=== PATIENT | male | born 1990 | race Caucasian/White ===

== ENCOUNTER 2020-10-07 13:09 | Inpatient (IN) ==
[2020-10-07] MEDS ORDERED: THIAMINE 200 MG/2 ML VIAL IV STA (13:57)
[2020-10-07 14:13] LABS: Basophils % 0.1 % (0.0-0.8); Hematocrit 21.9 VOL% (42.0-52.0); Hemoglobin 8.1 GM/DL (14.0-18.0); Immature Granulocytes % 1.2 %; Immature Granulocytes Absolute 0.16 #; Lymphocytes # 0.9 10*3/uL (1.4-4.0); Lymphocytes % 6.5 % (21.2-54.2); Mean Platelet Volume 12.2 FL (9.6-12.0); Monocytes % 3.2 % (1.7-12.7); Platelet Count 43 T/CUMM (130-400); Red Blood Count 2.01 MC/CUMM (3.8-5.5); Red Cell Distribution Width 19.3 % (9.3-17.3); White Blood Count 13.1 T/CUMM (4-12)
[2020-10-07 14:28] LABS: PT Patient Result 20.8 SECS (10.5-12.0)
[2020-10-07 14:29] LABS: Partial Thromboplastin Time 52.4 SECS (23.9-33.8)
[2020-10-07] MEDS ORDERED: cefTRIAXone 1,000 MG in SODIUM CHLORIDE 0.9% 100 ML IV STA (14:32)
[2020-10-07 14:41] LABS: Acetaminophen < 2.0 UG/ML (10-30); Salicylate < 2.8 MG/DL (2.8-20)
[2020-10-07 14:47] LABS: Albumin 2.1 G/DL (3.4-5.0); Calcium 8.1 MG/DL (8.5-10.1); Osmolality,Calculated 242.1 MOS/KG (273-304); Total Protein 5.4 G/DL (6.4-8.2)
[2020-10-07 15:08] LABS: Barbiturates Screen,Urine Negative (Negative); Benzodiazepines Screen,Urine Negative (Negative); Cannabinoid Screen,Urine Positive (Negative); Opiate Screen,Urine Negative (Negative); Phencyclidine Screen,Urine Negative (Negative)
[2020-10-07 15:11] LABS: Bacteria,Urine Few /HPF (Few); Blood, Urine Moderate mg/dL (Negative); Glucose,Urine (UA) Negative (Negative); Ketones,Urine Negative (Negative); Mucus,Urine Occasional /LPF (Occasional); Nitrite,Urine Negative (Negative); Protein,Urine Negative; RBC,Urine 1 /HPF (0-4); Squamous Epithelial Cell,Urine Occasional /HPF (0-10); Urine Appearance Slightly Hazy (Clear); Urine Color Amber (Yellow); Urine Specific Gravity 1.013 (1.001-1.035)
[2020-10-07 15:12] LABS: Bilirubin,Urine Moderate mg/dL (Negative)
[2020-10-07] MEDS ORDERED: ALBUTEROL 2.5 MG/3 ML NEB RESP TX PRN (15:38)
[2020-10-07] MEDS ORDERED: ONDANSETRON 4 MG/2 ML VIAL IV PRN (15:38)
[2020-10-07] MEDS ORDERED: LACTULOSE 20 GM/30 ML UDCUP PO PRN ×2 (15:38→17:53)
[2020-10-07 16:07] LABS: Hypochromasia 2+; Platelet Estimate Decreased
[2020-10-07 16:08] LABS: Acanthocytes Few; Microcytosis 1+
[2020-10-07] MEDS ORDERED: SODIUM CHLORIDE 3% INJ 500 ML IV STA (16:22)
[2020-10-07] MEDS ORDERED: ALBUTEROL/IPRATROPIUM 3 ML NEB RESP TX PRN (17:03)
[2020-10-07] MEDS ORDERED: DIAZEPAM 10 MG/2 ML SYRINGE IV PRN (17:03)
[2020-10-07] MEDS ORDERED: FUROSEMIDE 40 MG/4 ML VIAL IV ONE (17:30)
[2020-10-07] MEDS ORDERED: SODIUM CHLORIDE 3% INJ 100 ML IV STA (17:33)
[2020-10-07] MEDS: FAMOTIDINE 20 MG/2 ML VIAL IV SCH (17:50)
[2020-10-07] MEDS ORDERED: SODIUM CHLORIDE 0.9% 1,000 ML IV PRN (18:11)
[2020-10-07] MEDS ORDERED: ACETYLCYSTEINE INJ 15,000 MG in DEXTROSE 5% 100 ML IV ONE (18:30)
[2020-10-07] MEDS ORDERED: ACETYLCYSTEINE INJ 5,000 MG in DEXTROSE 5% 250 ML IV ONE (20:00)
[2020-10-07] MEDS ORDERED: LORazepam 2 MG/1 ML VIAL ONE (21:40)
[2020-10-07] MEDS: LORazepam 2 MG/1 ML VIAL IV PRN ×2 (21:44→22:42)
[2020-10-08] MEDS ORDERED: ACETYLCYSTEINE INJ 10,000 MG in DEXTROSE 5% 1,000 ML IV ONE
[2020-10-08] MEDS: LORazepam 2 MG/1 ML VIAL IV PRN (00:13)
[2020-10-08 01:13] LABS: ABG Base Excess 4.4 MMOL/L (-2.5-2.5); ABG HCO3 28.3 MMOL/L (20-26); ABG Oxygen Saturation 93.1 % (95-100); ABG PCO2 38.2 MM HG (35-48); ABG PH 7.475 (7.35-7.45); ABG PO2 67.3 MM HG (80-95); ABG TCO2 26.3 MMOL/L (23-27); Allen Test Positive
[2020-10-08] MEDS ORDERED: ETOMIDATE 20 MG/10 ML VIAL IV ONE ×2 (01:49→02:19)
[2020-10-08] MEDS ORDERED: ROCURONIUM 100 MG/10 ML VIAL IV ONE ×3 (01:49→02:21)
[2020-10-08] MEDS ORDERED: PHENYLEPHRINE DRIP 0 MG/0 ML PREMIX IV ONE (02:08)
[2020-10-08] MEDS: LORazepam INJ 40 MG in DEXTROSE 5% 30 ML IV PRN ×2 (02:28→16:48)
[2020-10-08 03:23] LABS: Basophils % 0.1 % (0.0-0.8); Hematocrit 21.9 VOL% (42.0-52.0); Hemoglobin 7.9 GM/DL (14.0-18.0); Immature Granulocytes % 1.6 %; Immature Granulocytes Absolute 0.13 #; Lymphocytes # 0.6 10*3/uL (1.4-4.0); Lymphocytes % 6.8 % (21.2-54.2); Mean Corpuscular HGB Conc 36.1 GM/DL (32-36); Mean Corpuscular Volume 104.8 FL (87-102); Mean Platelet Volume 11.8 FL (9.6-12.0); Monocytes % 3.1 % (1.7-12.7); Neutrophils % 88.4 % (38.7-73.9); Red Blood Count 2.09 MC/CUMM (3.8-5.5); White Blood Count 8.1 T/CUMM (4-12)
[2020-10-08 03:26] LABS: Platelet Count 35 T/CUMM (130-400)
[2020-10-08 03:35] LABS: INR 2.1
[2020-10-08 03:36] LABS: PT Patient Result 21.9 SECS (10.5-12.0)
[2020-10-08 03:46] LABS: Amorphous Crystals,Urine Occasional /HPF (Few); Bacteria,Urine Occasional /HPF (Few); Blood, Urine Small mg/dL (Negative); Glucose,Urine (UA) Negative (Negative); Ketones,Urine Negative (Negative); Mucus,Urine Occasional /LPF (Occasional); Nitrite,Urine Negative (Negative); Protein,Urine Negative; RBC,Urine 2 /HPF (0-4); Squamous Epithelial Cell,Urine Occasional /HPF (0-10); Urine Appearance Slightly Hazy (Clear); Urine Color Amber (Yellow)
[2020-10-08 03:48] LABS: Lymphocytes 7 % (20-55); Platelet Estimate Decreased; Segmented Neutrophils 91 % (50-85)
[2020-10-08 03:49] LABS: Hypochromasia 1+; Macrocytosis 1+
[2020-10-08 03:50] LABS: Total Cells Counted 100
[2020-10-08 03:51] LABS: ABG Base Excess 4.6 MMOL/L (-2.5-2.5); ABG HCO3 28.6 MMOL/L (20-26); ABG PCO2 49.9 MM HG (35-48); ABG PH 7.391 (7.35-7.45); ABG TCO2 28.3 MMOL/L (23-27); Allen Test Positive; Pt O2 Delivery Device Ventilator
[2020-10-08 03:54] LABS: Alanine Aminotransferase 47 U/L (16-61); Albumin 1.8 G/DL (3.4-5.0); Alkaline Phosphatase 105 U/L (45-117); Aspartate Amino Transferase 309 U/L (0-37); Blood Urea Nitrogen 19 MG/DL (7-18); Calcium 7.8 MG/DL (8.5-10.1); Carbon Dioxide 31 MMOL/L (21-32); Estimated Glom Filtration Rate 111 ML/MIN; Glucose 69 MG/DL (74-106); HDL Cholesterol 10 MG/DL (40-60); Osmolality,Calculated 252.4 MOS/KG (273-304); Potassium 2.9 MMOL/L (3.5-5.1); Sodium 126 MMOL/L (136-145); Total Protein 4.5 G/DL (6.4-8.2); Triglycerides 148 MG/DL (2-150); VLDL CHOLESTEROL 29.6 MG/DL
[2020-10-08 03:55] LABS: Bilirubin,Urine Moderate mg/dL (Negative)
[2020-10-08] MEDS: chlordiazePOXIDE 25 MG CAPSULE PO SCH ×3 (05:05→20:45)
[2020-10-08] MEDS: FAMOTIDINE 20 MG/2 ML VIAL IV SCH ×2 (05:05→16:20)
[2020-10-08] MEDS ORDERED: MAGNESIUM SULF RIDER 2 GM/50 ML PREMIX IV PRN (06:22)
[2020-10-08] MEDS ORDERED: MAGNESIUM SULF RIDER 4 GM/100 ML PREMIX IV PRN (06:22)
[2020-10-08] MEDS ORDERED: POTASSIUM CHLORIDE RIDER 100 ML IV ONE (06:23)
[2020-10-08] MEDS ORDERED: POTASSIUM CHLORIDE RIDER 10 MEQ in PREMIX 1 EACH IV PRN (06:24)
[2020-10-08] MEDS: POTASSIUM CHLORIDE RIDER 20 MEQ in PREMIX 1 EACH IV PRN ×2 (06:26→09:05)
[2020-10-08] MEDS ORDERED: POTASSIUM CHLORIDE 20 MEQ/15 ML UDCUP PER TUBE PRN (08:09)
[2020-10-08] MEDS ORDERED: SODIUM CHLORIDE 0.9% 1,000 ML IV PRN ×2 (08:10→09:23)
[2020-10-08] MEDS ORDERED: FUROSEMIDE 40 MG/4 ML VIAL IV ONE (08:12)
[2020-10-08] MEDS: prednisoLONE 15 MG/5 ML ORAL.SYR NG SCH (08:53)
[2020-10-08] MEDS ORDERED: THIAMINE INJ 100 MG, FOLIC ACID INJ 1 MG, MULTIVITAMIN INJ 10 ML in SODIUM CHLORIDE 0.9... IV ONE (09:00)
[2020-10-08] MEDS: LACTULOSE 20 GM/30 ML UDCUP PO SCH ×2 (10:12→16:59)
[2020-10-08] MEDS: SODIUM CHLORIDE 0.9% 1,000 ML IV SCH ×2 (14:12→20:20)
[2020-10-08] MEDS: NOREPINEPHRINE 16 MG in SODIUM CHLORIDE 0.9% 234 ML IV PRN (15:00)
[2020-10-08] MEDS: NYSTATIN 500,000 UNIT/5 ML UDCUP SWISH/SWAL SCH ×2 (16:20→20:45)
[2020-10-08 18:27] LABS: Basophils % 0.1 % (0.0-0.8); Hematocrit 22.3 VOL% (42.0-52.0); Hemoglobin 8.1 GM/DL (14.0-18.0); Lymphocytes # 0.7 10*3/uL (1.4-4.0); Lymphocytes % 7.5 % (21.2-54.2); Mean Corpuscular HGB Conc 36.3 GM/DL (32-36); Mean Corpuscular Volume 100.9 FL (87-102); Mean Platelet Volume 11.2 FL (9.6-12.0); Neutrophils % 89.4 % (38.7-73.9); Platelet Count 49 T/CUMM (130-400); Red Blood Count 2.21 MC/CUMM (3.8-5.5); Red Cell Distribution Width 22.5 % (9.3-17.3); White Blood Count 9.5 T/CUMM (4-12)
[2020-10-08 20:26] LABS: Lymphocytes 13 % (20-55); Segmented Neutrophils 87 % (50-85); Total Cells Counted 100
[2020-10-08 20:27] LABS: Platelet Estimate Decreased; Polychromasia 1+; Reactive Lymphocytes Few; Target Cells 2+
[2020-10-08 20:28] LABS: Anisocytosis 2+; Dohle Bodies 1+; Macrocytosis 2+; Microcytosis 1+; Toxic Granulation 1+
[2020-10-08] MEDS: NICOTINE 14 MG/24 HR PATCH TRANSDERM SCH (20:45)
[2020-10-09 03:01] LABS: ABG Base Excess 5.5 MMOL/L (-2.5-2.5); ABG HCO3 30.2 MMOL/L (20-26); ABG Oxygen Saturation 99.1 % (95-100); ABG PCO2 45.1 MM HG (35-48); ABG PH 7.443 (7.35-7.45); ABG PO2 154.9 MM HG (80-95); ABG TCO2 31.5 MMOL/L (23-27)
[2020-10-09] MEDS: chlordiazePOXIDE 25 MG CAPSULE PO SCH ×3 (03:40→21:23)
[2020-10-09] MEDS: LACTULOSE 20 GM/30 ML UDCUP PO SCH ×3 (03:40→17:05)
[2020-10-09] MEDS: FAMOTIDINE 20 MG/2 ML VIAL IV SCH ×2 (03:40→17:05)
[2020-10-09 03:53] LABS: Basophils % 0.1 % (0.0-0.8); Hematocrit 22.2 VOL% (42.0-52.0); Hemoglobin 8.1 GM/DL (14.0-18.0); Immature Granulocytes % 1.3 %; Immature Granulocytes Absolute 0.13 #; Lymphocytes # 0.8 10*3/uL (1.4-4.0); Lymphocytes % 8.4 % (21.2-54.2); Mean Corpuscular HGB Conc 36.5 GM/DL (32-36); Mean Corpuscular Volume 98.2 FL (87-102); Mean Platelet Volume 10.8 FL (9.6-12.0); Monocytes % 4.1 % (1.7-12.7); NRBC # 0.02 10*3/uL; Neutrophils % 86.1 % (38.7-73.9); Red Cell Distribution Width 22.5 % (9.3-17.3); White Blood Count 9.8 T/CUMM (4-12)
[2020-10-09 04:00] LABS: Platelet Count 41 T/CUMM (130-400); Red Blood Count 2.26 MC/CUMM (3.8-5.5)
[2020-10-09 04:14] LABS: Anisocytosis 1+; Hypochromasia 2+; Microcytosis 1+; Platelet Estimate Decreased; Target Cells 1+
[2020-10-09 04:23] LABS: Calcium 8.6 MG/DL (8.5-10.1); Osmolality,Calculated 265.2 MOS/KG (273-304); Potassium 3.1 MMOL/L (3.5-5.1)
[2020-10-09 04:25] LABS: Bilirubin,Total 27.7 MG/DL (0.2-1.0)
[2020-10-09] MEDS: SODIUM CHLORIDE 0.9% 1,000 ML IV SCH ×3 (04:26→17:01)
[2020-10-09] MEDS: POTASSIUM CHLORIDE RIDER 20 MEQ in PREMIX 1 EACH IV PRN ×5 (05:05→22:03)
[2020-10-09] MEDS ORDERED: ALBUMIN 25% 50 GM/200 ML VIAL IV ONE (07:35)
[2020-10-09] MEDS: NYSTATIN 500,000 UNIT/5 ML UDCUP SWISH/SWAL SCH ×4 (09:06→21:22)
[2020-10-09] MEDS: NICOTINE 14 MG/24 HR PATCH TRANSDERM SCH (09:06)
[2020-10-09] MEDS: prednisoLONE 15 MG/5 ML ORAL.SYR NG SCH (09:09)
[2020-10-10] MEDS: SODIUM CHLORIDE 0.9% 1,000 ML IV SCH ×4 (00:20→18:01)
[2020-10-10] MEDS: LACTULOSE 20 GM/30 ML UDCUP PO SCH (03:06)
[2020-10-10] MEDS: FAMOTIDINE 20 MG/2 ML VIAL IV SCH ×2 (03:07→16:50)
[2020-10-10] MEDS: chlordiazePOXIDE 25 MG CAPSULE PO SCH ×3 (03:12→20:45)
[2020-10-10 03:40] LABS: ABG Base Excess 0.8 MMOL/L (-2.5-2.5); ABG HCO3 25.1 MMOL/L (20-26); ABG Oxygen Saturation 97.8 % (95-100); ABG PCO2 41.9 MM HG (35-48); ABG PH 7.395 (7.35-7.45); ABG PO2 97.5 MM HG (80-95); ABG TCO2 24.1 MMOL/L (23-27)
[2020-10-10 04:30] LABS: Basophils % 0.2 % (0.0-0.8); Eosinophils % 0.2 % (0.00-10.9); Hematocrit 21.3 VOL% (42.0-52.0); Hemoglobin 7.6 GM/DL (14.0-18.0); Immature Granulocytes % 2.7 %; Lymphocytes # 0.9 10*3/uL (1.4-4.0); Lymphocytes % 8.4 % (21.2-54.2); Mean Corpuscular HGB Conc 35.7 GM/DL (32-36); Mean Corpuscular Volume 102.9 FL (87-102); Monocytes % 8.7 % (1.7-12.7); NRBC # 0.02 10*3/uL; Neutrophils % 79.8 % (38.7-73.9); Platelet Count 50 T/CUMM (130-400); Red Blood Count 2.07 MC/CUMM (3.8-5.5); Red Cell Distribution Width 22.5 % (9.3-17.3); White Blood Count 11.2 T/CUMM (4-12)
[2020-10-10 04:56] LABS: Albumin 2.5 G/DL (3.4-5.0); Calcium 8.8 MG/DL (8.5-10.1); Osmolality,Calculated 272.2 MOS/KG (273-304); Potassium 3.7 MMOL/L (3.5-5.1); Total Protein 5.1 G/DL (6.4-8.2)
[2020-10-10 04:59] LABS: Bilirubin,Total 31.1 MG/DL (0.2-1.0)
[2020-10-10] MEDS: POTASSIUM CHLORIDE RIDER 20 MEQ in PREMIX 1 EACH IV PRN (06:09)
[2020-10-10] MEDS: LORazepam INJ 40 MG in DEXTROSE 5% 30 ML IV PRN (06:12)
[2020-10-10] MEDS ORDERED: ALBUMIN 25% 50 GM/200 ML VIAL IV ONE (06:50)
[2020-10-10] MEDS ORDERED: LACTULOSE 320 GM/480 ML BOTTLE RECTAL PRN (06:56)
[2020-10-10] MEDS: NYSTATIN 500,000 UNIT/5 ML UDCUP SWISH/SWAL SCH ×4 (09:36→20:45)
[2020-10-10] MEDS: NICOTINE 14 MG/24 HR PATCH TRANSDERM SCH (09:36)
[2020-10-10] MEDS: prednisoLONE 15 MG/5 ML ORAL.SYR NG SCH (09:37)
[2020-10-10] MEDS: NOREPINEPHRINE 16 MG in SODIUM CHLORIDE 0.9% 234 ML IV PRN (16:49)
[2020-10-11 00:49] LABS: Basophils % 0.1 % (0.0-0.8); Eosinophils % 0.1 % (0.00-10.9); Hematocrit 26.9 VOL% (42.0-52.0); Immature Granulocytes % 6.1 %; Lymphocytes # 1.4 10*3/uL (1.4-4.0); Lymphocytes % 8.6 % (21.2-54.2); Mean Corpuscular HGB Conc 35.3 GM/DL (32-36); Mean Corpuscular Volume 100.4 FL (87-102); Neutrophils % 78.1 % (38.7-73.9); Red Cell Distribution Width 22.2 % (9.3-17.3)
[2020-10-11 00:52] LABS: Platelet Count 64 T/CUMM (130-400); White Blood Count 16.3 T/CUMM (4-12)
[2020-10-11 00:54] LABS: Hemoglobin 9.5 GM/DL (14.0-18.0); Red Blood Count 2.68 MC/CUMM (3.8-5.5)
[2020-10-11] MEDS: SODIUM CHLORIDE 0.9% 1,000 ML IV SCH ×3 (02:09→15:31)
[2020-10-11 02:20] LABS: Band Neutrophils 2 % (0-10); Lymphocytes 5 % (20-55); Segmented Neutrophils 86 % (50-85); Total Cells Counted 100
[2020-10-11 02:21] LABS: Hypochromasia 1+; Platelet Estimate Decreased
[2020-10-11 04:18] LABS: ABG Base Excess -3.1 MMOL/L (-2.5-2.5); ABG HCO3 21.8 MMOL/L (20-26); ABG Oxygen Saturation 97.4 % (95-100); ABG PCO2 40.6 MM HG (35-48); ABG PH 7.348 (7.35-7.45); ABG TCO2 20.3 MMOL/L (23-27); Allen Test Positive; Pt O2 Delivery Device Ventilator
[2020-10-11] MEDS: FAMOTIDINE 20 MG/2 ML VIAL IV SCH ×2 (04:40→15:30)
[2020-10-11] MEDS: chlordiazePOXIDE 25 MG CAPSULE PO SCH ×3 (04:40→20:39)
[2020-10-11] MEDS: LORazepam INJ 40 MG in DEXTROSE 5% 30 ML IV PRN ×3 (04:50→23:10)
[2020-10-11 04:52] LABS: Basophils % 0.1 % (0.0-0.8); Eosinophils % 0.1 % (0.00-10.9); Hematocrit 27.5 VOL% (42.0-52.0); Hemoglobin 9.8 GM/DL (14.0-18.0); Immature Granulocytes % 5.4 %; Immature Granulocytes Absolute 1.03 #; Lymphocytes # 1.6 10*3/uL (1.4-4.0); Lymphocytes % 8.6 % (21.2-54.2); Mean Corpuscular HGB Conc 35.6 GM/DL (32-36); Mean Corpuscular Volume 100.4 FL (87-102); Monocytes % 8.9 % (1.7-12.7); Neutrophils % 76.9 % (38.7-73.9); Red Blood Count 2.74 MC/CUMM (3.8-5.5); White Blood Count 19.1 T/CUMM (4-12)
[2020-10-11 04:53] LABS: Platelet Count 73 T/CUMM (130-400)
[2020-10-11 05:16] LABS: Hypochromasia 1+; Lymphocytes 8 % (20-55); Microcytosis 1+; Platelet Estimate Decreased; Segmented Neutrophils 86 % (50-85); Total Cells Counted 100
[2020-10-11 06:27] LABS: Albumin 2.5 G/DL (3.4-5.0); Osmolality,Calculated 291.7 MOS/KG (273-304); Potassium 4.1 MMOL/L (3.5-5.1); Total Protein 5.8 G/DL (6.4-8.2)
[2020-10-11 06:28] LABS: Bilirubin,Total 29.2 MG/DL (0.2-1.0)
[2020-10-11] MEDS: NYSTATIN 500,000 UNIT/5 ML UDCUP SWISH/SWAL SCH ×4 (08:37→20:48)
[2020-10-11] MEDS: prednisoLONE 15 MG/5 ML ORAL.SYR NG SCH (08:37)
[2020-10-11] MEDS: NICOTINE 14 MG/24 HR PATCH TRANSDERM SCH (08:37)
[2020-10-11] MEDS ORDERED: GLUCAGON 1 MG VIAL IM PRN (09:56)
[2020-10-11] MEDS: INSULIN REGULAR 100 UNIT/ML SUBCUT SCH ×3 (11:33→23:45)
[2020-10-11 11:45] LABS: INR 1.5; PT Patient Result 16.1 SECS (10.5-12.0)
[2020-10-11] MEDS: NOREPINEPHRINE 16 MG in SODIUM CHLORIDE 0.9% 234 ML IV PRN (18:54)
[2020-10-12 04:30] LABS: Basophils % 0.2 % (0.0-0.8); Hematocrit 26.8 VOL% (42.0-52.0); Hemoglobin 9.5 GM/DL (14.0-18.0); Immature Granulocytes % 7.4 %; Immature Granulocytes Absolute 1.57 #; Lymphocytes # 1.1 10*3/uL (1.4-4.0); Lymphocytes % 5.2 % (21.2-54.2); Mean Corpuscular HGB Conc 35.4 GM/DL (32-36); Mean Corpuscular Volume 101.1 FL (87-102); Mean Platelet Volume 11.7 FL (9.6-12.0); Monocytes % 10.8 % (1.7-12.7); NRBC # 0.03 10*3/uL; Neutrophils % 76.4 % (38.7-73.9); Platelet Count 109 T/CUMM (130-400); Red Blood Count 2.65 MC/CUMM (3.8-5.5); Red Cell Distribution Width 22.3 % (9.3-17.3); White Blood Count 21.3 T/CUMM (4-12)
[2020-10-12] MEDS: chlordiazePOXIDE 25 MG CAPSULE PO SCH (04:32)
[2020-10-12] MEDS: FAMOTIDINE 20 MG/2 ML VIAL IV SCH ×2 (04:32→16:12)
[2020-10-12 04:38] LABS: INR 1.4; PT Patient Result 15.4 SECS (10.5-12.0)
[2020-10-12 04:50] LABS: Albumin 2.4 G/DL (3.4-5.0); Calcium 8.5 MG/DL (8.5-10.1); Osmolality,Calculated 295.8 MOS/KG (273-304); Potassium 4.3 MMOL/L (3.5-5.1); Total Protein 5.6 G/DL (6.4-8.2)
[2020-10-12] MEDS: SODIUM CHLORIDE 0.9% 1,000 ML IV SCH (04:51)
[2020-10-12 04:54] LABS: Bilirubin,Total 27.7 MG/DL (0.2-1.0)
[2020-10-12 05:00] LABS: Band Neutrophils 1 % (0-10); Hypochromasia 1+; Lymphocytes 7 % (20-55); Microcytosis 1+; Platelet Estimate Decreased; Segmented Neutrophils 82 % (50-85); Total Cells Counted 100
[2020-10-12 05:10] LABS: Allen Test Positive; Pt O2 Delivery Device Ventilator
[2020-10-12 05:12] LABS: ABG Base Excess -5.7 MMOL/L (-2.5-2.5); ABG HCO3 19.8 MMOL/L (20-26); ABG Oxygen Saturation 95.2 % (95-100); ABG PCO2 38.8 MM HG (35-48); ABG PH 7.325 (7.35-7.45); ABG PO2 88.8 MM HG (80-95)
[2020-10-12] MEDS: INSULIN REGULAR 100 UNIT/ML SUBCUT SCH ×3 (05:42→17:49)
[2020-10-12] MEDS: LORazepam INJ 40 MG in DEXTROSE 5% 30 ML IV PRN (08:10)
[2020-10-12] MEDS: NYSTATIN 500,000 UNIT/5 ML UDCUP SWISH/SWAL SCH ×4 (08:33→21:15)
[2020-10-12] MEDS: NICOTINE 14 MG/24 HR PATCH TRANSDERM SCH (08:34)
[2020-10-12] MEDS: prednisoLONE 15 MG/5 ML ORAL.SYR NG SCH (08:34)
[2020-10-12] MEDS ORDERED: PROMETHAZINE INJ 12.5 MG in SODIUM CHLORIDE 0.9% 50 ML IV PRN (13:56)
[2020-10-12] MEDS ORDERED: chlordiazePOXIDE 25 MG CAPSULE PO SCH (15:00)
[2020-10-12] MEDS: IBUPROFEN 400 MG TABLET PO PRN (16:20)
[2020-10-12] MEDS: MEROPENEM 500 MG in SODIUM CHLORIDE 0.9% 100 ML IV SCH (18:28)
[2020-10-12] MEDS: NOREPINEPHRINE 16 MG in SODIUM CHLORIDE 0.9% 234 ML IV PRN (22:17)
[2020-10-13] MEDS: INSULIN REGULAR 100 UNIT/ML SUBCUT SCH ×4 (00:44→17:21)
[2020-10-13 03:56] LABS: Basophils # 0.1 10*3/uL (0.0-0.2); Basophils % 0.2 % (0.0-0.8); Eosinophils % 0.1 % (0.00-10.9); Hematocrit 24.8 VOL% (42.0-52.0); Hemoglobin 9.1 GM/DL (14.0-18.0); Immature Granulocytes % 7.7 %; Immature Granulocytes Absolute 1.74 #; Lymphocytes # 1.2 10*3/uL (1.4-4.0); Lymphocytes % 5.4 % (21.2-54.2); Mean Corpuscular HGB Conc 36.7 GM/DL (32-36); Mean Corpuscular Volume 99.6 FL (87-102); Mean Platelet Volume 11.5 FL (9.6-12.0); Monocytes % 8.4 % (1.7-12.7); NRBC # 0.03 10*3/uL; Neutrophils % 78.2 % (38.7-73.9); Platelet Count 100 T/CUMM (130-400); Red Blood Count 2.49 MC/CUMM (3.8-5.5); Red Cell Distribution Width 22.7 % (9.3-17.3); White Blood Count 22.6 T/CUMM (4-12)
[2020-10-13 03:58] LABS: ABG Base Excess -8.2 MMOL/L (-2.5-2.5); ABG HCO3 17.8 MMOL/L (20-26); ABG Oxygen Saturation 98.2 % (95-100); ABG PCO2 38.5 MM HG (35-48); ABG PH 7.279 (7.35-7.45); ABG TCO2 16.8 MMOL/L (23-27); Allen Test Positive; Pt O2 Delivery Device Ventilator
[2020-10-13 04:20] LABS: Band Neutrophils 1 % (0-10); Lymphocytes 6 % (20-55); Segmented Neutrophils 84 % (50-85); Total Cells Counted 100
[2020-10-13 04:21] LABS: Hypochromasia 1+; Microcytosis 1+
[2020-10-13 04:22] LABS: Platelet Estimate Adequate
[2020-10-13 04:24] LABS: INR 1.5; PT Patient Result 15.8 SECS (10.5-12.0)
[2020-10-13 04:25] LABS: Albumin 2.3 G/DL (3.4-5.0); Calcium 8.3 MG/DL (8.5-10.1); Osmolality,Calculated 303.9 MOS/KG (273-304); Potassium 4.8 MMOL/L (3.5-5.1); Total Protein 5.5 G/DL (6.4-8.2)
[2020-10-13 04:27] LABS: Bilirubin,Total 26.5 MG/DL (0.2-1.0)
[2020-10-13] MEDS: FAMOTIDINE 20 MG/2 ML VIAL IV SCH ×2 (05:15→17:17)
[2020-10-13] MEDS: MEROPENEM 500 MG in SODIUM CHLORIDE 0.9% 100 ML IV SCH ×2 (05:19→17:22)
[2020-10-13] MEDS: prednisoLONE 15 MG/5 ML ORAL.SYR NG SCH (08:44)
[2020-10-13] MEDS: NYSTATIN 500,000 UNIT/5 ML UDCUP SWISH/SWAL SCH ×4 (08:45→20:10)
[2020-10-13] MEDS: NICOTINE 14 MG/24 HR PATCH TRANSDERM SCH (08:45)
[2020-10-13] MEDS: LACTULOSE 320 GM/480 ML BOTTLE RECTAL SCH ×3 (08:46→20:40)
[2020-10-13] MEDS ORDERED: ALBUMIN 25% 25 GM/100 ML VIAL IV ONE (16:24)
[2020-10-14] MEDS: INSULIN REGULAR 100 UNIT/ML SUBCUT SCH ×4 (00:14→18:21)
[2020-10-14] MEDS: LACTULOSE 320 GM/480 ML BOTTLE RECTAL SCH ×4 (02:20→21:03)
[2020-10-14 03:42] LABS: Basophils # 0.1 10*3/uL (0.0-0.2); Basophils % 0.3 % (0.0-0.8); Hematocrit 24.8 VOL% (42.0-52.0); Immature Granulocytes % 8.3 %; Immature Granulocytes Absolute 2.59 #; Lymphocytes # 0.9 10*3/uL (1.4-4.0); Lymphocytes % 2.8 % (21.2-54.2); Mean Corpuscular HGB Conc 36.3 GM/DL (32-36); Mean Corpuscular Volume 99.6 FL (87-102); Monocytes % 6.8 % (1.7-12.7); NRBC # 0.08 10*3/uL; Neutrophils % 81.8 % (38.7-73.9); Platelet Count 133 T/CUMM (130-400); Red Blood Count 2.49 MC/CUMM (3.8-5.5); Red Cell Distribution Width 22.9 % (9.3-17.3); White Blood Count 31.2 T/CUMM (4-12)
[2020-10-14 03:51] LABS: INR 1.5; PT Patient Result 15.9 SECS (10.5-12.0)
[2020-10-14 04:12] LABS: Albumin 2.5 G/DL (3.4-5.0); Osmolality,Calculated 303.7 MOS/KG (273-304); Total Protein 5.9 G/DL (6.4-8.2)
[2020-10-14] MEDS: FAMOTIDINE 20 MG/2 ML VIAL IV SCH (04:19)
[2020-10-14 04:25] LABS: ABG Base Excess -7.9 MMOL/L (-2.5-2.5); ABG Oxygen Saturation 95.5 % (95-100); ABG PCO2 45.5 MM HG (35-48); ABG PO2 92.5 MM HG (80-95); ABG TCO2 17.8 MMOL/L (23-27); Allen Test Positive; Pt O2 Delivery Device Ventilator
[2020-10-14 04:28] LABS: Bilirubin,Total 28.6 MG/DL (0.2-1.0)
[2020-10-14 04:38] LABS: Band Neutrophils 1 % (0-10); Lymphocytes 2 % (20-55); Metamyelocytes 1 %; Nucleated Red Blood Cells 1 (0-5); Segmented Neutrophils 94 % (50-85); Total Cells Counted 100
[2020-10-14 04:39] LABS: Anisocytosis 1+; Hypochromasia 1+; Microcytosis 1+; Target Cells Few
[2020-10-14] MEDS: MEROPENEM 500 MG in SODIUM CHLORIDE 0.9% 100 ML IV SCH (05:15)
[2020-10-14] MEDS: NOREPINEPHRINE 16 MG in SODIUM CHLORIDE 0.9% 234 ML IV PRN ×2 (07:00→23:48)
[2020-10-14] MEDS: NICOTINE 14 MG/24 HR PATCH TRANSDERM SCH (08:57)
[2020-10-14] MEDS: NYSTATIN 500,000 UNIT/5 ML UDCUP SWISH/SWAL SCH ×4 (08:57→20:13)
[2020-10-14] MEDS ORDERED: VANCOMYCIN INJ 1,000 MG in SODIUM CHLORIDE 0.9% 250 ML IV PRN (10:20)
[2020-10-14] MEDS ORDERED: VANCOMYCIN INJ 2,500 MG in SODIUM CHLORIDE 0.9% 500 ML IV ONE (11:00)
[2020-10-14] MEDS: METOCLOPRAMIDE 10 MG/2 ML VIAL IV SCH ×2 (12:50→18:21)
[2020-10-14] MEDS ORDERED: ALBUMIN 25% 25 GM/100 ML VIAL IV ONE (13:41)
[2020-10-14] MEDS: IBUPROFEN 400 MG TABLET PO PRN (14:10)
[2020-10-14 16:53] LABS: Hepatitis B Core IgM Quant 0.09 Index; Hepatitis B Surface Ag Quant < 0.10 Index; Hepatitis B Surface Ag Result Non-Reactive (NonReactive); Hepatitis C Virus Ab Quant 0.13 Index; Hepatitis C Virus Ab Result Non-Reactive (NonReactive)
[2020-10-14] MEDS ORDERED: VANCOMYCIN INJ 1,000 MG in SODIUM CHLORIDE 0.9% 250 ML IV ONE (21:00)
[2020-10-15] MEDS: INSULIN REGULAR 100 UNIT/ML SUBCUT SCH ×4 (00:18→18:38)
[2020-10-15] MEDS: METOCLOPRAMIDE 10 MG/2 ML VIAL IV SCH ×4 (00:30→18:38)
[2020-10-15] MEDS: LACTULOSE 320 GM/480 ML BOTTLE RECTAL SCH ×4 (03:30→20:54)
[2020-10-15 04:41] LABS: ABG Base Excess -5.9 MMOL/L (-2.5-2.5); ABG HCO3 20.1 MMOL/L (20-26); ABG Oxygen Saturation 97.3 % (95-100); ABG PCO2 41.4 MM HG (35-48); ABG PH 7.303 (7.35-7.45); ABG PO2 112.7 MM HG (80-95); ABG TCO2 21.3 MMOL/L (23-27); Allen Test Positive; Pt O2 Delivery Device Ventilator
[2020-10-15 04:58] LABS: Basophils # 0.1 10*3/uL (0.0-0.2); Basophils % 0.2 % (0.0-0.8); Eosinophils % 0.1 % (0.00-10.9); Hemoglobin 8.4 GM/DL (14.0-18.0); Immature Granulocytes % 9.7 %; Immature Granulocytes Absolute 3.45 #; Lymphocytes # 1.4 10*3/uL (1.4-4.0); Lymphocytes % 3.9 % (21.2-54.2); Mean Corpuscular Volume 102.1 FL (87-102); Mean Platelet Volume 11.7 FL (9.6-12.0); Monocytes % 7.4 % (1.7-12.7); NRBC # 0.28 10*3/uL; Neutrophils % 78.7 % (38.7-73.9); Platelet Count 159 T/CUMM (130-400); Red Blood Count 2.35 MC/CUMM (3.8-5.5); Red Cell Distribution Width 23.6 % (9.3-17.3); White Blood Count 35.7 T/CUMM (4-12)
[2020-10-15 05:06] LABS: INR 1.4; PT Patient Result 15.2 SECS (10.5-12.0)
[2020-10-15 05:23] LABS: Albumin 2.7 G/DL (3.4-5.0); Osmolality,Calculated 298.4 MOS/KG (273-304); Total Protein 5.9 G/DL (6.4-8.2)
[2020-10-15 05:29] LABS: Bilirubin,Total 29.3 MG/DL (0.2-1.0)
[2020-10-15] MEDS: FAMOTIDINE 20 MG/2 ML VIAL IV SCH (06:12)
[2020-10-15 06:13] LABS: Band Neutrophils 8 % (0-10); Lymphocytes 4 % (20-55); Metamyelocytes 1 %; Myelocytes 1 %; Platelet Estimate Normal; Segmented Neutrophils 78 % (50-85); Total Cells Counted 100
[2020-10-15 06:14] LABS: Anisocytosis 1+; Macrocytosis 1+; Tear Drop Cells Few
[2020-10-15] MEDS: MEROPENEM 500 MG in SODIUM CHLORIDE 0.9% 100 ML IV SCH (06:14)
[2020-10-15 06:15] LABS: Basophilic Stippling Slight; Poikilocytosis Slight; Stomatocytes Few
[2020-10-15] MEDS: NICOTINE 14 MG/24 HR PATCH TRANSDERM SCH (08:44)
[2020-10-15] MEDS: NYSTATIN 500,000 UNIT/5 ML UDCUP SWISH/SWAL SCH ×4 (08:44→20:54)
[2020-10-15] MEDS: IBUPROFEN 400 MG TABLET PO PRN ×2 (11:50→20:55)
[2020-10-15] MEDS: NOREPINEPHRINE 16 MG in SODIUM CHLORIDE 0.9% 234 ML IV PRN (16:20)
[2020-10-15] MEDS ORDERED: VANCOMYCIN INJ 1,000 MG in SODIUM CHLORIDE 0.9% 250 ML IV ONE (18:00)
[2020-10-16] MEDS: METOCLOPRAMIDE 10 MG/2 ML VIAL IV SCH ×5 (00:07→23:43)
[2020-10-16] MEDS: INSULIN REGULAR 100 UNIT/ML SUBCUT SCH ×5 (00:07→23:42)
[2020-10-16] MEDS: LACTULOSE 320 GM/480 ML BOTTLE RECTAL SCH ×4 (03:20→23:22)
[2020-10-16] MEDS: NOREPINEPHRINE 16 MG in SODIUM CHLORIDE 0.9% 234 ML IV PRN ×3 (03:24→21:59)
[2020-10-16 04:40] LABS: ABG Base Excess -12.5 MMOL/L (-2.5-2.5); ABG HCO3 14.5 MMOL/L (20-26); ABG PCO2 47.5 MM HG (35-48); ABG TCO2 15.6 MMOL/L (23-27); Allen Test Positive; Pt O2 Delivery Device Ventilator
[2020-10-16 04:41] LABS: Basophils # 0.1 10*3/uL (0.0-0.2); Basophils % 0.2 % (0.0-0.8); Eosinophils % 0.1 % (0.00-10.9); Hematocrit 23.4 VOL% (42.0-52.0); Immature Granulocytes % 10.2 %; Lymphocytes # 2.3 10*3/uL (1.4-4.0); Lymphocytes % 5.9 % (21.2-54.2); Mean Corpuscular HGB Conc 34.2 GM/DL (32-36); Mean Corpuscular Volume 106.4 FL (87-102); Mean Platelet Volume 11.5 FL (9.6-12.0); Monocytes % 7.6 % (1.7-12.7); NRBC # 0.68 10*3/uL; Platelet Count 133 T/CUMM (130-400); Red Cell Distribution Width 24.8 % (9.3-17.3); White Blood Count 38.2 T/CUMM (4-12)
[2020-10-16 04:48] LABS: ABG PH 7.138 (7.35-7.45)
[2020-10-16 05:01] LABS: INR 1.5; PT Patient Result 16.3 SECS (10.5-12.0)
[2020-10-16 05:29] LABS: Albumin 2.4 G/DL (3.4-5.0); Calcium 7.8 MG/DL (8.5-10.1); Osmolality,Calculated 296.5 MOS/KG (273-304); Total Protein 5.7 G/DL (6.4-8.2)
[2020-10-16 05:37] LABS: Potassium 6.2 MMOL/L (3.5-5.1)
[2020-10-16] MEDS ORDERED: CALCIUM CHLORIDE 1,000 MG/10 ML SYRINGE IV ONE (05:47)
[2020-10-16] MEDS ORDERED: SODIUM BICARBONATE 50 MEQ/50 ML VIAL IV ONE (05:47)
[2020-10-16] MEDS ORDERED: CALCIUM GLUCONATE 1,000 MG/10 ML VIAL IV ONE (05:48)
[2020-10-16] MEDS: MEROPENEM 500 MG in SODIUM CHLORIDE 0.9% 100 ML IV SCH (05:51)
[2020-10-16] MEDS: FAMOTIDINE 20 MG/2 ML VIAL IV SCH (06:44)
[2020-10-16 07:28] LABS: Band Neutrophils 3 % (0-10); Lymphocytes 7 % (20-55); Metamyelocytes 2 %; Nucleated Red Blood Cells 3 (0-5); Platelet Estimate Normal; Segmented Neutrophils 81 % (50-85); Total Cells Counted 100
[2020-10-16 07:30] LABS: Anisocytosis 2+; Macrocytosis 1+; Pappenheimer Bodies 1+; Stomatocytes Few; Target Cells 1+
[2020-10-16 07:31] LABS: Polychromasia 1+
[2020-10-16] MEDS: NYSTATIN 500,000 UNIT/5 ML UDCUP SWISH/SWAL SCH ×4 (09:53→21:17)
[2020-10-16] MEDS: NICOTINE 14 MG/24 HR PATCH TRANSDERM SCH (11:01)
[2020-10-16] MEDS ORDERED: SODIUM POLYSTYRENE SULFATE 15 GM/60 ML BOTTLE PO ONE (13:04)
[2020-10-16 13:06] VITALS: BP 120/54
[2020-10-16] MEDS ORDERED: SODIUM BICARB INJ 150 MEQ in STERILE WATER INJ 850 ML IV SCH (14:00)
[2020-10-16] MEDS ORDERED: OXYMETAZOLINE 0.05% NASAL SPRAY 15 ML BOTTLE BOTH NARES PRN (16:29)
[2020-10-16 17:05] LABS: Basophils # 0.1 10*3/uL (0.0-0.2); Basophils % 0.3 % (0.0-0.8); Hematocrit 26.7 VOL% (42.0-52.0); Hemoglobin 8.9 GM/DL (14.0-18.0); Immature Granulocytes % 10.2 %; Immature Granulocytes Absolute 4.02 #; Lymphocytes # 2.4 10*3/uL (1.4-4.0); Lymphocytes % 6.2 % (21.2-54.2); Mean Corpuscular HGB Conc 33.3 GM/DL (32-36); Mean Corpuscular Volume 105.5 FL (87-102); Mean Platelet Volume 11.6 FL (9.6-12.0); Monocytes % 7.1 % (1.7-12.7); NRBC # 0.73 10*3/uL; Neutrophils % 76.2 % (38.7-73.9); Platelet Count 117 T/CUMM (130-400); Red Blood Count 2.53 MC/CUMM (3.8-5.5); White Blood Count 39.4 T/CUMM (4-12)
[2020-10-16 17:16] LABS: INR 1.6; PT Patient Result 16.9 SECS (10.5-12.0)
[2020-10-16 17:51] LABS: Lymphocytes 10 % (20-55); Nucleated Red Blood Cells 1 (0-5); Segmented Neutrophils 84 % (50-85); Total Cells Counted 100
[2020-10-16 17:53] LABS: Anisocytosis 1+; Basophilic Stippling Few; Hypochromasia 1+; Polychromasia Few
[2020-10-16 17:54] LABS: Macrocytosis Slight; Ovalocytes Few; Platelet Estimate Adequate
[2020-10-16] MEDS: DEXTROSE 50% 25 GM/50 ML VIAL IV PRN (23:22)
[2020-10-17] MEDS: DEXTROSE 50% 25 GM/50 ML VIAL IV PRN (03:30)
[2020-10-17 03:54] LABS: Basophils # 0.1 10*3/uL (0.0-0.2); Basophils % 0.3 % (0.0-0.8); Hematocrit 25.8 VOL% (42.0-52.0); Hemoglobin 8.4 GM/DL (14.0-18.0); Immature Granulocytes % 7.8 %; Immature Granulocytes Absolute 3.04 #; Lymphocytes # 2.2 10*3/uL (1.4-4.0); Lymphocytes % 5.7 % (21.2-54.2); Mean Corpuscular HGB Conc 32.6 GM/DL (32-36); Mean Corpuscular Volume 108.9 FL (87-102); Mean Platelet Volume 11.4 FL (9.6-12.0); Monocytes % 6.6 % (1.7-12.7); NRBC # 0.86 10*3/uL; Neutrophils % 79.6 % (38.7-73.9); Platelet Count 105 T/CUMM (130-400); Red Blood Count 2.37 MC/CUMM (3.8-5.5); Red Cell Distribution Width 25.2 % (9.3-17.3); White Blood Count 38.8 T/CUMM (4-12)
[2020-10-17 04:22] LABS: Band Neutrophils 1 % (0-10); Hypochromasia 1+; Lymphocytes 7 % (20-55); Microcytosis 1+; Nucleated Red Blood Cells 2 (0-5); Platelet Estimate Decreased; Segmented Neutrophils 87 % (50-85); Total Cells Counted 100
[2020-10-17 04:28] LABS: Albumin 2.1 G/DL (3.4-5.0); Calcium 7.3 MG/DL (8.5-10.1); Osmolality,Calculated 314.4 MOS/KG (273-304); Total Protein 5.1 G/DL (6.4-8.2)
[2020-10-17 04:33] LABS: Bilirubin,Total 22.7 MG/DL (0.2-1.0); Potassium 7.6 MMOL/L (3.5-5.1)
[2020-10-17 04:37] LABS: INR 1.7; PT Patient Result 18.2 SECS (10.5-12.0)
[2020-10-17 04:44] LABS: ABG Base Excess -20.2 MMOL/L (-2.5-2.5); ABG HCO3 9.4 MMOL/L (20-26); ABG Oxygen Saturation 95.9 % (95-100); ABG PCO2 37.1 MM HG (35-48); ABG TCO2 9.6 MMOL/L (23-27); Allen Test Positive; Pt O2 Delivery Device Ventilator
[2020-10-17 04:45] LABS: ABG PH 7.024 (7.35-7.45)
[2020-10-17] MEDS: LACTULOSE 320 GM/480 ML BOTTLE RECTAL SCH (05:17)
[2020-10-17] MEDS: INSULIN REGULAR 100 UNIT/ML SUBCUT SCH (06:12)
[2020-10-17] MEDS: FAMOTIDINE 20 MG/2 ML VIAL IV SCH (06:13)
[2020-10-17] MEDS: METOCLOPRAMIDE 10 MG/2 ML VIAL IV SCH (06:13)
[2020-10-17] MEDS: MEROPENEM 500 MG in SODIUM CHLORIDE 0.9% 100 ML IV SCH (06:13)
== END 2020-10-17 06:20 | disposition expired | DRG 432 ==
LOC: N.ED 13:09 → SUATTDRO 15:38 → N.EDINP 15:38 → N.CC 16:20
PROVIDERS: ADMIT Internal Medicine; ATTEND Internal Medicine